=== PATIENT | male | born 1960 | race Caucasian/White ===

== ENCOUNTER 2018-03-24 11:12 | Inpatient (IN) | payer MEDICAID, OTHER ==
[~2018-03-24] VITALS: Ht 170.2 cm; Wt 63.4 kg
[2018-03-24] MEDS ORDERED: OMEP20 PO (11:25)
[2018-03-24] MEDS ORDERED: RISP3 PO (11:25)
[2018-03-24] MEDS ORDERED: ALBU8HFA IH (11:25)
[2018-03-24] MEDS ORDERED: OLAN10TA3 PO (11:25)
[2018-03-24] MEDS ORDERED: LITH300C3 PO ×2 (11:25)
[2018-03-24] MEDS ORDERED: LORA10TA7 PO (11:25)
[2018-03-24 11:42] LABS: BASOPHILS % (AUTO) 0.2 % (0.0-2.0); EOSINOPHILS % (AUTO) 1.1 % (1.0-6.0); HEMATOCRIT 41.5 % (41-53); HEMOGLOBIN 14.6 g/dL (13.5-17.5); LYMPHOCYTES # (AUTO) 0.7 K/uL (1.0-4.8); LYMPHOCYTES % (AUTO) 6.6 % (22.0-44.0); MEAN CORPUSCULAR HEMOGLOBIN 31.8 pg (26.0-34.0); MEAN CORPUSCULAR HGB CONC 35.3 G/dL (31.0-37.0); MEAN CORPUSCULAR VOLUME 90 fL (80-100); MONOCYTES # (AUTO) 0.6 K/uL (0.1-1.0); MONOCYTES % (AUTO) 5.8 % (2.0-9.0); NEUTROPHILS # (AUTO) 8.6 K/uL (1.8-7.7); PLATELET COUNT (AUTO) 166 K/uL (150-450); RED CELL DISTRIBUTION WIDTH 12.6 % (11.5-14.5)
[2018-03-24 11:48] LABS: NEUTROPHILS % (AUTO) 86.3 % (40.0-70.0)
[2018-03-24 12:04] LABS: ANION GAP 4 mmol/L (8-16); CALCIUM, TOTAL 9.5 mg/dL (8.8-10.5); CARBON DIOXIDE 32 mmol/L (22-29); CHLORIDE 100 mmol/L (98-107); CREATININE 1.02 mg/dL (0.60-1.30); GLOMERULAR FILTR. RATE CALC > 60 mL/min (>60); GLUCOSE,RANDOM 105 mg/dL (70-110); LITHIUM < 0.20 mmol/L (0.60-1.20); POTASSIUM 4.9 mmol/L (3.5-5.1); SODIUM SERUM 136 mmol/L (136-145); UREA NITROGEN, BLOOD 17 mg/dL (7-18)
[2018-03-24 12:07] LABS: AMPHET/METH SCREEN,URINE NEGATIVE (NEGATIVE); BARBITURATE SCREEN, URINE NEGATIVE (NEGATIVE); BENZODIAZEPINES SCREEN,URINE NEGATIVE (NEGATIVE); CANNABINOID SCREEN,URINE NEGATIVE (NEGATIVE); COCAINE SCREEN,URINE NEGATIVE (NEGATIVE); METHADONE SCREEN, URINE NEGATIVE (NEGATIVE); OPIATE SCREEN,URINE NEGATIVE (NEGATIVE)
[2018-03-24 12:10] LABS: PHENCYCLIDINE SCREEN,URINE NEGATIVE (NEGATIVE)
[2018-03-24 12:10] LABS: ALANINE AMINOTRANSFERASE 50 U/L (12-78); ALBUMIN 4.2 g/dL (3.4-5.0); ALKALINE PHOSPHATASE 59 U/L (46-116); ASPARTATE AMINOTRANSFERASE 26 U/L (15-37); BILIRUBIN,TOTAL 0.5 mg/dL (0.1-1.0); TOTAL PROTEIN, SERUM 7.4 g/dL (6.4-8.2)
[2018-03-24] MEDS: HALOPERIDOL 5 MG TABLET PO PRN (13:52)
[2018-03-24] MEDS ORDERED: LORazepam 2 MG TABLET PO ONE (14:00)
[2018-03-24] MEDS ORDERED: DiphenhydrAMINE HCL 50 MG/ML VIAL IM ONE (14:15)
[2018-03-24 14:21] LABS: CHOLESTEROL 151 mg/dL (131-200); FREE T4 (FREE THYROXINE) 0.68 ng/dL (0.76-1.46); HDL CHOLESTEROL 51 mg/dL (40-60); LDL CHOL (CALC.) 80 mg/dL (0-130); THYROID STIMULATING HORMONE 3.51 uIU/mL (0.36-3.74); TRIGLYCERIDES 102 mg/dL (15-150)
[2018-03-24 20:22] VITALS: BP 117/88
[2018-03-24] MEDS: OLANZapine 10 MG TABLET PO SCH (20:44)
[2018-03-24] MEDS: LITHIUM CARBONATE 300 MG CAPSULE PO SCH (20:44)
[2018-03-25] MEDS: HALOPERIDOL 5 MG TABLET PO PRN (01:00)
[2018-03-25] MEDS: ZOLPIDEM TARTRATE 10 MG TABLET PO PRN ×2 (01:00→23:51)
[2018-03-25] MEDS: LORazepam 2 MG TABLET PO PRN ×2 (01:00→23:52)
[2018-03-25 01:05] VITALS: BP 132/80
[2018-03-25] MEDS ORDERED: LOPERAMIDE HCL 2 MG CAPSULE PO PRN (07:15)
[2018-03-25] MEDS ORDERED: BACITRACIN 28.4 GM OINTMENT TP PRN (07:15)
[2018-03-25] MEDS ORDERED: MAG HYDROX/AL HYDROX/SIMETH ES 30 ML SUSPENSION UDCUP PO PRN (07:15)
[2018-03-25] MEDS ORDERED: PETROLATUM,WHITE 71 GM JELLY TP PRN (07:15)
[2018-03-25] MEDS ORDERED: ACETAMINOPHEN 325 MG TABLET PO PRN (07:15)
[2018-03-25] MEDS ORDERED: BENZOCAINE/MENTHOL LOZENGE MM PRN (07:15)
[2018-03-25] MEDS ORDERED: CloNIDine HCL 0.1 MG TABLET PO PRN (07:15)
[2018-03-25] MEDS ORDERED: IBUPROFEN 600 MG TABLET PO PRN (07:15)
[2018-03-25] MEDS ORDERED: ONDANSETRON HCL 4 MG TABLET PO PRN (07:15)
[2018-03-25] MEDS ORDERED: MAGNESIUM HYDROXIDE SUSPENSION 30 ML UDCUP PO PRN (07:15)
[2018-03-25] MEDS: LITHIUM CARBONATE 300 MG CAPSULE PO SCH ×2 (09:11→16:50)
[2018-03-25] MEDS: OMEPRAZOLE 20 MG CAPSULE PO SCH ×2 (09:11→16:49)
[2018-03-25] MEDS: OLANZapine 10 MG TABLET PO SCH ×2 (09:11→16:49)
[2018-03-25] MEDS: LORATADINE 10 MG TABLET PO SCH (09:11)
[2018-03-25 10:30] VITALS: BP 116/74
[2018-03-25 18:59] VITALS: BP 109/62
[2018-03-26] MEDS: HALOPERIDOL 5 MG TABLET PO PRN ×4 (01:04→19:03)
[2018-03-26 08:00] VITALS: BP 128/82
[2018-03-26] MEDS: LORazepam 2 MG TABLET PO PRN ×3 (08:09→19:03)
[2018-03-26] MEDS: OLANZapine 10 MG TABLET PO SCH ×2 (08:09→16:28)
[2018-03-26] MEDS: LORATADINE 10 MG TABLET PO SCH (08:09)
[2018-03-26] MEDS: OMEPRAZOLE 20 MG CAPSULE PO SCH ×2 (08:10→16:28)
[2018-03-26] MEDS: LITHIUM CARBONATE 300 MG CAPSULE PO SCH ×2 (08:10→16:28)
[2018-03-26 17:00] VITALS: BP 118/72
[2018-03-27] MEDS: LORazepam 2 MG TABLET PO PRN ×3 (03:02→21:46)
[2018-03-27] MEDS: ZOLPIDEM TARTRATE 10 MG TABLET PO PRN (03:02)
[2018-03-27 06:42] VITALS: BP 124/76
[2018-03-27 08:46] VITALS: BP 131/84
[2018-03-27] MEDS: LITHIUM CARBONATE 300 MG CAPSULE PO SCH ×2 (10:09→16:52)
[2018-03-27] MEDS: OLANZapine 10 MG TABLET PO SCH ×2 (10:09→16:52)
[2018-03-27] MEDS: OMEPRAZOLE 20 MG CAPSULE PO SCH ×2 (10:09→16:52)
[2018-03-27] MEDS: LORATADINE 10 MG TABLET PO SCH (10:09)
[2018-03-27 19:58] VITALS: BP 127/78
[2018-03-27] MEDS: HALOPERIDOL 5 MG TABLET PO PRN (21:46)
[2018-03-28] MEDS: ZOLPIDEM TARTRATE 10 MG TABLET PO PRN ×2 (00:10→20:34)
[2018-03-28] MEDS: LORazepam 2 MG TABLET PO PRN ×3 (08:08→19:22)
[2018-03-28] MEDS: OLANZapine 10 MG TABLET PO SCH ×2 (08:08→18:04)
[2018-03-28] MEDS: ALBUTEROL SULFATE HFA 90 MCG/PUFF 8 GM INHALER IH PRN (08:08)
[2018-03-28] MEDS: HALOPERIDOL 5 MG TABLET PO PRN ×3 (08:08→19:22)
[2018-03-28] MEDS: LITHIUM CARBONATE 600 MG CAPSULE PO SCH ×2 (08:08→18:03)
[2018-03-28] MEDS: LORATADINE 10 MG TABLET PO SCH (08:08)
[2018-03-28] MEDS: OMEPRAZOLE 20 MG CAPSULE PO SCH ×2 (08:08→18:04)
[2018-03-28 08:56] VITALS: BP 135/80
[2018-03-28 21:57] VITALS: BP 129/74
[2018-03-29] MEDS: LORazepam 2 MG TABLET PO PRN ×4 (02:07→17:01)
[2018-03-29] MEDS: HALOPERIDOL 5 MG TABLET PO PRN ×4 (02:07→21:12)
[2018-03-29] MEDS: LITHIUM CARBONATE 600 MG CAPSULE PO SCH ×2 (07:20→17:01)
[2018-03-29] MEDS: OMEPRAZOLE 20 MG CAPSULE PO SCH ×2 (07:20→17:00)
[2018-03-29] MEDS: OLANZapine 10 MG TABLET PO SCH ×2 (07:20→17:01)
[2018-03-29] MEDS: LORATADINE 10 MG TABLET PO SCH (07:21)
[2018-03-29] MEDS: ALBUTEROL SULFATE HFA 90 MCG/PUFF 8 GM INHALER IH PRN (07:21)
[2018-03-29 08:30] VITALS: BP 134/81
[2018-03-29 16:20] VITALS: BP 142/75
[2018-03-29] MEDS: ZOLPIDEM TARTRATE 10 MG TABLET PO PRN (21:12)
[2018-03-30] MEDS: LORazepam 2 MG TABLET PO PRN ×3 (00:32→20:03)
[2018-03-30] MEDS: HALOPERIDOL 5 MG TABLET PO PRN ×3 (01:24→20:03)
[2018-03-30 07:11] LABS: ANION GAP 5 mmol/L (8-16); CALCIUM, TOTAL 9.3 mg/dL (8.8-10.5); CARBON DIOXIDE 31 mmol/L (22-29); CHLORIDE 102 mmol/L (98-107); CREATININE 1.05 mg/dL (0.60-1.30); GLOMERULAR FILTR. RATE CALC > 60 mL/min (>60); GLUCOSE,RANDOM 94 mg/dL (70-110); SODIUM SERUM 138 mmol/L (136-145); UREA NITROGEN, BLOOD 21 mg/dL (7-18)
[2018-03-30 09:13] VITALS: BP 134/67
[2018-03-30] MEDS: OLANZapine 10 MG TABLET PO SCH ×2 (09:21→16:45)
[2018-03-30] MEDS: OMEPRAZOLE 20 MG CAPSULE PO SCH ×2 (09:21→16:45)
[2018-03-30] MEDS: LORATADINE 10 MG TABLET PO SCH (09:21)
[2018-03-30] MEDS: LITHIUM CARBONATE 600 MG CAPSULE PO SCH ×2 (09:21→16:45)
[2018-03-30] MEDS: ALBUTEROL SULFATE HFA 90 MCG/PUFF 8 GM INHALER IH PRN (09:25)
[2018-03-30 17:04] VITALS: BP 121/70
[2018-03-30] MEDS: ZOLPIDEM TARTRATE 10 MG TABLET PO PRN (21:06)
[2018-03-31] MEDS: OLANZapine 7.5 MG TABLET PO SCH ×2 (08:00→22:08)
[2018-03-31] MEDS: LITHIUM CARBONATE 600 MG CAPSULE PO SCH ×2 (08:00→17:16)
[2018-03-31] MEDS: LORATADINE 10 MG TABLET PO SCH (08:00)
[2018-03-31] MEDS: HALOPERIDOL 5 MG TABLET PO PRN (08:00)
[2018-03-31] MEDS: OMEPRAZOLE 20 MG CAPSULE PO SCH ×2 (08:00→17:16)
[2018-03-31] MEDS: LORazepam 2 MG TABLET PO PRN (08:00)
[2018-03-31 08:57] VITALS: BP 132/77
[2018-03-31] MEDS: ALBUTEROL SULFATE HFA 90 MCG/PUFF 8 GM INHALER IH PRN (09:22)
[2018-03-31 20:04] VITALS: BP 126/86
[2018-04-01] MEDS: HALOPERIDOL 5 MG TABLET PO PRN ×2 (00:15→11:59)
[2018-04-01] MEDS: ZOLPIDEM TARTRATE 10 MG TABLET PO PRN (00:15)
[2018-04-01 01:11] VITALS: BP 146/84
[2018-04-01] MEDS: LORazepam 2 MG TABLET PO PRN ×2 (03:04→11:59)
[2018-04-01] MEDS: LORATADINE 10 MG TABLET PO SCH (08:18)
[2018-04-01] MEDS: OMEPRAZOLE 20 MG CAPSULE PO SCH ×2 (08:18→17:26)
[2018-04-01] MEDS: LITHIUM CARBONATE 600 MG CAPSULE PO SCH ×2 (08:18→17:26)
[2018-04-01] MEDS: OLANZapine 7.5 MG TABLET PO SCH ×2 (08:19→20:51)
[2018-04-01 08:41] VITALS: BP 131/80
[2018-04-01] MEDS ORDERED: NITROGLYCERIN 0.4 MG SUBLINGUAL TABLET #25 SL PRN (12:15)
[2018-04-01 17:15] VITALS: BP 133/78
[2018-04-02 00:33] VITALS: BP 128/80
[2018-04-02] MEDS: ZOLPIDEM TARTRATE 10 MG TABLET PO PRN ×2 (00:36→20:39)
[2018-04-02] MEDS: LORazepam 2 MG TABLET PO PRN ×2 (00:36→16:22)
[2018-04-02] MEDS: HALOPERIDOL 5 MG TABLET PO PRN ×2 (02:39→16:23)
[2018-04-02] MEDS: OLANZapine 7.5 MG TABLET PO SCH ×2 (08:59→20:39)
[2018-04-02] MEDS: OMEPRAZOLE 20 MG CAPSULE PO SCH ×2 (08:59→16:23)
[2018-04-02] MEDS: LORATADINE 10 MG TABLET PO SCH (08:59)
[2018-04-02] MEDS: LITHIUM CARBONATE 600 MG CAPSULE PO SCH ×2 (08:59→16:23)
[2018-04-02 09:40] VITALS: BP 142/84
[2018-04-02 16:46] VITALS: BP 124/82
[2018-04-03 00:38] VITALS: BP 105/65
[2018-04-03] MEDS: HALOPERIDOL 5 MG TABLET PO PRN ×2 (00:41→08:26)
[2018-04-03] MEDS: LORazepam 2 MG TABLET PO PRN ×2 (00:41→08:26)
[2018-04-03] MEDS: LORATADINE 10 MG TABLET PO SCH (08:27)
[2018-04-03] MEDS: OMEPRAZOLE 20 MG CAPSULE PO SCH (08:27)
[2018-04-03 08:28] VITALS: BP 140/75
[2018-04-03] MEDS: LITHIUM CARBONATE 600 MG CAPSULE PO SCH (08:28)
[2018-04-03] MEDS: OLANZapine 7.5 MG TABLET PO SCH (08:28)
[2018-04-03] MEDS ORDERED: OLAN7.5T2 PO (14:37)
[2018-04-03] MEDS ORDERED: OLAN7.5T9 PO (14:47)
[2018-04-03] MEDS ORDERED: LITH600 PO (14:47)
== END 2018-04-03 15:20 | disposition home or self-care (01) | DRG 753 ==
LOC: EMS 11:15 → 3EI 19:24 → 3EC 03-27 18:31
DX: F31.5 Bipolar disorder, current episode depressed, severe, with psychotic features (principal); F15.10 Other stimulant abuse, uncomplicated; F41.9 Anxiety disorder, unspecified; G47.00 Insomnia, unspecified; J31.0 Chronic rhinitis; K21.9 Gastro-esophageal reflux disease without esophagitis; Z72.89 Other problems related to lifestyle; Z79.899 Other long term (current) drug therapy; Z71.41 Alcohol abuse counseling and surveillance of alcoholic; Z71.51 Drug abuse counseling and surveillance of drug abuser
CPT/HCPCS: 84439; 84443; 87081; 93005; 99285; G0480; J1200; J3535